=== PATIENT | female | born 1955 | race Caucasian/White ===

== ENCOUNTER → 2018-02-05 | Outpatient (CLI) | payer BC ==
[~2018-02-05] MED LIST: ASPI-496 PO; CALCIUM PO; DORZ1DRO5 EACHEYE; ESTR0.5T3 PO; MULT-516 PO; OMEG1CAP6 PO; TRET15GE2 TP; VIT1CAPS42 PO
== END | disposition home or self-care (01) ==
LOC: STAR 11:12
PROVIDERS: ATTEND Obstetrics & Gynecology Female Pelvic Medicine and Reconstructive Surgery
DX: Z01.818 Encounter for other preprocedural examination (principal); D25.9 Leiomyoma of uterus, unspecified; N95.0 Postmenopausal bleeding; N84.0 Polyp of corpus uteri
CPT/HCPCS: 71046